=== PATIENT | male | born 1990 | race Caucasian/White ===

== ENCOUNTER 2017-05-30 23:05 | Emergency (ER) | payer OTHER ==
[2017-05-30] MEDS ORDERED: oxyCODONE/Acetamin 5/325 MG* TAB PO ONE (23:29)
--- NOTE | 2017-05-30 23:33 | ED ---
Throat Pain/Nasal Congestion - HPI Summary HPI Summary: 26M presents with dental pain for a couple days. Saw his dentist today who prescribed naproxen which is not helping. He has been using Tylenol and ibuprofen for his pain. He denies any fever, swelling, pain with eye movement. He is on amoxicillin for impacted wisdom teeth. He states the pain is an ache and radiates into his jaw. He states that his teeth are very sensitive to cold. His dentist things he needs a route canal as had cavity filled there 5 days ago and had no pain but now has pain. - History of Current Complaint Chief Complaint: EDDentalPain Time Seen by Provider: 05/30/17 23:12 - Allergies/Home Medications Allergies/Adverse Reactions: Allergies Allergy/AdvReac Type Severity Reaction Status Date / Time Sulfa Drugs Allergy Unknown Verified 05/30/17 23:08 Reaction Details PMH/Surg Hx/FS Hx/Imm Hx Endocrine/Hematology History: Denies: Hx Anticoagulant Therapy Cardiovascular History: Denies: Hx Hypertension Infectious Disease History: No Infectious Disease History: Denies: Traveled Outside the [place] in Last 30 Days - Family History Known Family History: Positive: Hypertension - Social History Alcohol Use: Weekly Substance Use Type: Reports: None Smoking Status (MU): Never Smoked Tobacco Review of Systems Negative: Fever Positive: Dental Pain Negative: Chest Pain Negative: Shortness Of Breath All Other Systems Reviewed And Are Negative: Yes Physical Exam Triage Information Reviewed: Yes Vital Signs On Initial Exam: Initial Vitals Temp Pulse Resp BP Pulse Ox 97.5 F 72 18 165/95 97 05/30/17 23:08 05/30/17 23:08 05/30/17 23:08 05/30/17 23:08 05/30/17 23:08 Vital Signs Reviewed: Yes Appearance: Positive: Pain Distress Skin: Positive: Warm, Dry Head/Face: Positive: Normal Head/Face Inspection Eyes: Positive: Normal, EOMI, YIFAN, Conjunctiva Clear ENT: Positive: Normal ENT inspection, Pharynx normal, TMs normal Dental: Positive: Percussion Tenderness @ - 3. Negative: Dental Fracture @, Abscess @ Respiratory/Lung Sounds: Positive: Clear to Auscultation, Breath Sounds Present Cardiovascular: Positive: Normal, RRR Diagnostics - Vital Signs Vital Signs Temp Pulse Resp BP Pulse Ox 05/30/17 23:08 97.5 F 72 18 165/95 97 - Laboratory Lab Statement: Any lab studies that have been ordered have been reviewed, and results considered in the medical decision making process. EENT Course/Dx - Course Course Of Treatment: 26M presents with dental pain for a couple days. Saw his dentist today who prescribed naproxen which is not helping. He has been using Tylenol and ibuprofen for his pain. He denies any fever, swelling, pain with eye movement. He is on amoxicillin for impacted wisdom teeth. He states the pain is an ache and radiates into his jaw. He states that his teeth are very sensitive to cold. His dentist things he needs a route canal as had cavity filled there 5 days ago and had no pain but now has pain. tooth 3 tender to percussion and no abscess seen. told to continue amoxicillin and this is likely nerve pain rather than infection. discussed options for pain and will add on gabapentin for pain. patient understands and agrees with plan - Differential Diagnoses Differential Diagnoses: Dental Abscess, Dental Caries, Fractured Tooth - Diagnoses Provider Diagnoses: Dental infection Discharge - Discharge Plan Condition: Good Disposition: HOME Prescriptions: Gabapentin CAP(*) [Neurontin 100 mg CAP(*)] 200 mg PO TID #21 cap Patient Education Materials: Toothache (ED) Referrals: Rc Florez MD [Medical Doctor] - Additional Instructions: Continue antibiotic Take Tylenol and ibuprofen as needed every 6 hours Take gabapentin three times a day Follow up with dentist Return to ED if develop fever, swelling around eyes, or any new or worsening symptoms Images - Images Dental: 1 - pain
[2017-05-30 23:49] VITALS: BP 156/91
== END 2017-05-30 23:53 | disposition home or self-care (01) ==
LOC: ED 23:05
DX: K04.7 Periapical abscess without sinus (principal); Z88.2 Allergy status to sulfonamides
CPT/HCPCS: 99282; A9270-GY